=== PATIENT | male | born 1965 | race Caucasian/White ===

== ENCOUNTER 2018-10-27 10:38 | Outpatient (CLI) | payer OTHER | END 2018-10-27 10:39 | disposition home or self-care (01) | LOC: SC 10:38 | PROVIDERS: ATTEND Internal Medicine Pulmonary Disease | DX: G47.33 Obstructive sleep apnea (adult) (pediatric) (principal); E66.9 Obesity, unspecified; Z68.33 Body mass index [BMI] 33.0-33.9, adult | CPT/HCPCS: 99203; 99212 ==

== ENCOUNTER 2019-01-06 14:21 | Outpatient (CLI) | payer OTHER | END 2019-01-06 14:22 | disposition home or self-care (01) | LOC: SC 14:21 | PROVIDERS: ATTEND Nurse Practitioner Family | DX: G47.33 Obstructive sleep apnea (adult) (pediatric) (principal) | CPT/HCPCS: 99212; 99214 ==

== ENCOUNTER 2019-02-08 14:08 | Outpatient (CLI) | payer OTHER | END 2019-02-08 14:09 | disposition home or self-care (01) | LOC: SC 14:08 | PROVIDERS: ATTEND Nurse Practitioner Family | DX: G47.33 Obstructive sleep apnea (adult) (pediatric) (principal) | CPT/HCPCS: 99212; 99214 ==

== ENCOUNTER 2019-04-06 14:29 | Outpatient (CLI) | payer OTHER | END 2019-04-06 14:30 | disposition home or self-care (01) | LOC: SC 14:29 | PROVIDERS: ATTEND Nurse Practitioner Family | DX: G47.33 Obstructive sleep apnea (adult) (pediatric) (principal) | CPT/HCPCS: 99212; 99213 ==

== ENCOUNTER 2020-08-22 07:47 | Outpatient (CLI) | payer OTHER ==
--- NOTE | 2020-08-22 08:29 | SLEEP CARE CONSULTATION ---
Information from patient questionnaire entered by Amanda Marshall. I have reviewed and concur with the information entered by Amanda Marshall. This document represents the service I personally performed and the decisions made by me, Esperanza Leyva ARNP. History of Present Illness Service Date and Time: 08/22/2020 0747 Previous diagnosis: Moderate, Obstructive Sleep Apnea-Hypopnea Syndrome AHI: 25.1 (in 2011) Reason for follow up: annual (last seen 03/2019) Equipment type: CPAP Equipment obtained from: Other ( Medical out [facility], getting supplies as needed) Mask style: Nasal Backup mask available: Yes (old mask) Last cushion change: 6 weeks ago Prior sleep studies: Yes Year and Where: [facility] in [place], [place] Type of Sleep Study: Polysomnography HPI additional information: ANGELES TAFOYA JR was diagnosed to have moderate, AHI 25.1, obstructive sleep apnea-hypopnea syndrome and returned today for CPAP therapy annual follow-up with possible pressure issues. CPAP Compliance Data - Data Reviewed with Patient Average duration of nightly device use: 5 hr 41 min Compliance rate %: 61.7 (180 days) Current pressure setting (cmH2O): 12-13 Humidity settin Heated hose settin Average residual AHI: 3.8 Average large leak: 6 min 48 sec Compliance data discussion: He has been having lots of stress recently and had some chest pressure. He saw his PCM who did a full cardiac workup and it was not related. He states it seems to have reduced when he stopped using the CPAP. He no longer has chest pains but still has some chest pressure that comes and goes. He used to have a problem with chest pressure in March 2019 that resolved with increasing of CPAP pressure for air hunger. Subjective Missed days of use due to: reports: other (chest discomfort) Patient concerns: reports: dry mouth, nose, throat (occasional, adjusts humidity and heat with good results). denies: aerophagia, mask discomfort, air blowing in eyes, mask leak noise, condensation in mask/hose, nasal congestion, epistaxis, other Observed to snore while using device: No Current pressure setting perceived as: comfortable On therapy, patient: reports: sleeping better, awakening more refreshed, being more awake and alert during the day, more rested overall. denies: drowsiness while driving Initial [place] Sleepiness Scale score: 9 (in 2019) Current [place] Sleepiness Scale score: 1 Allergies and Home Medications Drug allergies reviewed: Yes (NKDA) Home medication list reviewed: Yes Allergy and home medication list: Omeprazole Cozaar Review of Systems Review of systems same as previous: No (Left Knee replacement Jun 17) Physical Exam Heart Rate: 62 O2 Saturation: 98 Height: 5 ft 11 in Weight: 244 lb Body Mass Index: 34.0 BMI Classification: Obese Impression and Plan 1. Obstructive Sleep Apnea-Hypopnea Syndrome, moderate, with fair treatment compliance and good apnea control. On CPAP therapy, the patient has better sleep quality and is more rested overall. He has not been able to use his machine in the last 2 weeks. He has been having some chest discomfort that feels like pressure. He has had a full cardiac workup without any concerning heart findings. He would like to see if changing the pressure will resolve the chest discomfort. I will reduce the CPAP pressure to 10-11 cm H2O and have him follow up in 1-2 months. He will call the office if the pressure feels like it is not enough or is too much with aerophagia to have pressure adjusted prior to appointment. Patient's apnea severity and rationale for treatment to reduce apnea, improve sleep quality and reduce cardiovascular and cerebrovascular events was reviewed. I also reviewed the benefit of consistent device use of CPAP for hypertension and gastric reflux. * Change autoCPAP pressure to 10-11 cmH2O * Notify me if snoring with mask or feeling that the pressure is too much or too little * Attempt to lose weight * Call this office if any problems using CPAP * Return for follow up in 1-2 months , or sooner if concerns arise Counseling Topics: Spare mask, Weight loss health impact Visit Type: In Office Time Spent with Patient (minutes): 25 Provider Statement: I spent 100% of the Face to Face Visit with the patient with greater than 50% spent counseling the patient and coordination of care.
== END 2020-08-22 07:48 | disposition home or self-care (01) ==
LOC: SC 07:47
PROVIDERS: ATTEND Nurse Practitioner Family
DX: G47.33 Obstructive sleep apnea (adult) (pediatric) (principal); E66.9 Obesity, unspecified; Z68.34 Body mass index [BMI] 34.0-34.9, adult
CPT/HCPCS: 99212; 99213

== ENCOUNTER 2020-10-25 15:02 | Outpatient (CLI) | payer OTHER ==
--- NOTE | 2020-10-25 15:15 | SLEEP CARE CONSULTATION ---
Information from patient questionnaire entered by Soco Amor. I have reviewed and concur with the information entered by Soco Amor. This document represents the service I personally performed and the decisions made by me, Esperanza Leyva ARNP. History of Present Illness Service Date and Time: 10/25/20201499 Previous diagnosis: Moderate, Obstructive Sleep Apnea-Hypopnea Syndrome AHI: 25.1 Reason for follow up: other (Two-month followup - pressure change) Equipment type: CPAP Equipment obtained from: Other ([employer] supplies in [place]; getting supplies as needed) Mask style: Nasal pillows Backup mask available: Yes (old mask) Last cushion change: 1 week ago Prior sleep studies: Yes Year and Where: [address] [place] [address] Sleep Lab in [place], [place] Type of Sleep Study: Polysomnography HPI additional information: ANGELES TAFOYA JR was diagnosed to have moderate, AHI 25.1, obstructive sleep apnea-hypopnea syndrome and returns via Telehealth visit today for CPAP therapy two month pressure change follow-up. CPAP Compliance Data - Data Reviewed with Patient Average duration of nightly device use: 6 h 3 min Compliance rate %: 71.7 Current pressure setting (cmH2O): 10-11 Humidity settin Heated hose settin Average residual AHI: 5.2 Average large leak: 1 sec Subjective Patient concerns: denies: aerophagia, mask discomfort, air blowing in eyes, mask leak noise, condensation in mask/hose, nasal congestion, dry mouth, nose, throat, epistaxis, other Observed to snore while using device: No Current pressure setting perceived as: comfortable On therapy, patient: reports: sleeping better, awakening more refreshed, being more awake and alert during the day, more rested overall. denies: drowsiness while driving Initial [place] Sleepiness Scale score: 9 Current [place] Sleepiness Scale score: 2 Allergies and Home Medications Drug allergies reviewed: Yes (NKDA) Home medication list reviewed: Yes (Omeprazole changed to generic) Review of Systems Review of systems same as previous: Yes (no changes) Physical Exam Vital signs obtained and entered by: Telehealth visit to limit exposure during Covid pandemic Height: 5 ft 11 in Impression and Plan 1. Obstructive Sleep Apnea-Hypopnea Syndrome, moderate, with fair treatment compliance and fair apnea control with minimal elevated residual AHI. On CPAP therapy, the patient has better sleep quality and is more rested overall. He states the chest discomfort has resolved but he does not know that he can attribute this to the CPAP pressure. His stress level has come down and the changed his medication for his acid reflux to the "generic omeprazole". Since his residual AHI is slightly elevated I will adjust his pressure back up to 11- 12 cmH2O which should adequately take care of this. He may contact the office if the pressure feels like it is too much, not enough or he develops aerophagia. Patient's apnea severity and rationale for treatment to reduce apnea, improve sleep quality and reduce cardiovascular and cerebrovascular events was reviewed. I also reviewed the benefit of consistent device use of CPAP for hypertension and gastric reflux. * Change auto CPAP pressure to 11-12 cmH2O * Notify me if snoring with mask or feeling that the pressure is too much or too little * Call this office if any problems using CPAP * Return for follow up in 1 year, or sooner if concerns arise Counseling Topics: Spare mask Visit Type: Telehealth Video Video Type: VSee Patient Location: Home Location of Provider: Office Patient agrees and consents to this telehealth visit type: Yes Time Spent with Patient (minutes): 16 Provider Statement: I spent 100% of the Telehealth Video Call with the patient with greater than 50% spent counseling the patient and coordination of care.
== END 2020-10-25 15:03 | disposition home or self-care (01) ==
LOC: SC 15:02
PROVIDERS: ATTEND Nurse Practitioner Family
DX: G47.33 Obstructive sleep apnea (adult) (pediatric) (principal)

== ENCOUNTER 2021-04-09 07:03 | Outpatient (CLI) | payer OTHER ==
--- NOTE | 2021-04-09 09:18 | MRI Report ---
PROCEDURE: Knee RT W/O INDICATIONS: RIGHT KNEE PAIN TECHNIQUE: Noncontrast sagittal PD fast spin echo and T2 fast spin echo with fat saturation, sagittal 3-D gradie nt sequence with fat saturation; coronal T1 spin echo and PD fast spin echo with fat saturation, and axial PD fast spin echo with fat saturation through the knee. COMPARISON: None. FINDINGS: Image quality: Excellent. Menisci: Complex tear involving body and posterior horn of medial meniscus is seen extending to both superior and inferior articulating surfaces. Peripheral displacement of medial meniscus is noted bowi ng medial collateral ligament. There is no evidence of focal lateral meniscal tear. The meniscal root ligaments appear intact. Cruciate ligaments: The anterior and posterior cruciate ligaments appear intact. Medial structures: Low-grade proximal MCL sprain is seen near its femoral insertion with thickened li gament and surrounding soft tissue edema. The posterior oblique ligament, semimembranosus tendon inse rtions, and oblique popliteal ligament, and meniscocapsular junction appear intact. Visualized porti ons of the pes anserinus tendons appear normal. No abnormal bursal fluid. Lateral structures: The lateral collateral ligament, long and short heads of the biceps femoris tend on appear intact. The popliteus tendon appears normal; the popliteofibular ligament appears intact. The posterosuperior and anteroinferior popliteomeniscal fascicles appear intact. The arcuate and fa bellofibular ligaments appear intact, around the lateral inferior geniculate artery. Iliotibial band appears normal. Anterior structures: The quadriceps and patellar tendons appear intact. Patellar alignment is leslie l. No femoral trochlear dysplasia or ventral trochlear prominence. No edema in the infrapatellar fa t pad. Bones and cartilage: No bone marrow contusions or fractures. Mild to moderate tricompartmental osteo arthritis and chondromalacia is seen more prominent in medial femoral tibial compartment. Moderate gr christ chondromalacia involving lateral facet of patella cartilage is also seen with adjacent 3 mm osteo chondral lesion involving posterior lateral portion of underlying patella. Joint space: There is moderate amount of joint fluid, no gross intra-articular loose body. A small B april's cyst is seen. Normal appearing synovial plicae are incidentally noted. IMPRESSION: 1. Complex tear involving body and posterior horn of medial meniscus extending to both superior and i nferior articulating surfaces. No evidence of focal lateral meniscal tear. 2. Low-grade proximal MCL sprain near its femoral insertion. Cruciate ligaments are intact. 3. Low to moderate grade tricompartmental osteoarthritis and chondromalacia more prominent in medial femoral tibial compartment and lateral portion of patellofemoral compartment as above. Moderate amoun t of joint effusion, no gross loose body. Small popliteal cyst. Reviewed by: Andrew Sandoval MD on 04/09/2021 9:17 AM PDT Approved by: Andrew Sandoval MD on 04/09/2021 9:17 AM PDT Station ID: [id number]
== END 2021-04-09 07:04 | disposition home or self-care (01) ==
LOC: DI 07:03
PROVIDERS: ATTEND Physician Assistant
DX: S83.231A Complex tear of medial meniscus, current injury, right knee, initial encounter (principal); S83.411A Sprain of medial collateral ligament of right knee, initial encounter; M17.11 Unilateral primary osteoarthritis, right knee; M94.261 Chondromalacia, right knee; M25.461 Effusion, right knee; M71.21 Synovial cyst of popliteal space [Baker], right knee

== ENCOUNTER 2021-10-17 14:15 | Outpatient (CLI) | payer OTHER ==
[2021-10-17 15:02] VITALS: BP 124/89
--- NOTE | 2021-10-17 15:02 | SLEEP CARE CONSULTATION ---
Information from patient questionnaire entered by Haley Salinas MA. I have reviewed and concur with the information entered by Haley Salinas MA. This document represents the service I personally performed and the decisions made by , Esperanza Leyva ARNP. History of Present Illness Service Date and Time: 10/17/2021 1415 Previous diagnosis: Moderate, Obstructive Sleep Apnea-Hypopnea Syndrome AHI: 25.1 Reason for follow up: annual (LAST SEEN 09/2020) Equipment type: CPAP Equipment obtained from: Other ([employer] [facility] in [place]; getting supplies as needed) Mask style: Nasal pillows Backup mask available: No (needs supplies) Last cushion change: 5 months Prior sleep studies: Yes Year and Where: [address] [place] [address] Sleep Lab in [place], [place] Type of Sleep Study: Polysomnography HPI additional information: ANGELES TAFOYA was diagnosed to have moderate, AHI 25.1, obstructive sleep apnea-hypopnea syndrome and returned today for CPAP therapy annual follow-up. Sleep Study - Results Type of Sleep Study: Polysomnography Prior sleep studies: Yes Year and Where: [address] [place] [address] Sleep Lab in [place], [place] CPAP Compliance Data - Data Reviewed with Patient Average duration of nightly device use: 6 HOURS 33 MINUTES Compliance rate %: 61.7 Current pressure setting (cmH2O): 11-12 Humidity settin Average residual AHI: 6.9 Average large leak: 17 SECONDS Compliance data discussion: Stopped using device because he ran out of supplies. Subjective Missed days of use due to: reports: other (RECALL) Patient concerns: reports: other (RECALL). denies: aerophagia, mask discomfort, air blowing in eyes, mask leak noise, condensation in mask/hose, nasal congestion, dry mouth, nose, throat, epistaxis Observed to snore while using device: No Current pressure setting perceived as: comfortable On therapy, patient: reports: sleeping better, awakening more refreshed, being more awake and alert during the day, more rested overall. denies: drowsiness while driving Initial [place] Sleepiness Scale score: 9 Current [place] Sleepiness Scale score: 4 (2021) Allergies and Home Medications Known drug allergies: No Drug allergies reviewed: Yes Home medication list reviewed: Yes (no changes) Allergy and home medication list: Omeprazole Losartan Review of Systems Review of systems same as previous: Yes (no changes) Physical Exam Vital signs obtained and entered by: eGrald SALINAS CMA AANH Blood Pressure: 124/89 (RIGHT, PULSE 92) Heart Rate: 56 O2 Saturation: 96 (WITH PAPER MASK) Height: 5 ft 11 in Weight: 245 lb 5.992 oz (WITH CLOTHES) Body Mass Index: 34.2 BMI Classification: Obese Impression and Plan 1. Obstructive Sleep Apnea-Hypopnea Syndrome, moderate, with fair treatment compliance and fair apnea control with minimal elevation of residual AHI. On CPAP therapy, the patient has better sleep quality and is more rested overall. He is comfortable with current pressure settings and has significant improvement of his AHI. I will make no pressure changes today. He has run out of supplies and had to stop using his device. He has a 3 year old Dreamstation that he has registered for the recall. Patient denies any black particles seen in machine or hoses, any unusual odors coming from device. Patient has not experienced any physical symptoms such as upper airway irritation, headache, skin or eye irritation, asthma, nausea/vomiting, difficulty breathing or chest pain. If patient is not able to sleep due to waking up choking, gasping for air or other respiratory distress that they may decide to continue using it until it is either replaced or repaired. Patient will continue to use his device and monitor for any debris. Patient needs supplies to be able to use his CPAP. I will write an order to update his supplies. Patient voiced understanding and agreement with plan. Patient's apnea severity and rationale for treatment to reduce apnea, improve sleep quality and reduce cardiovascular and cerebrovascular events was reviewed. I also reviewed the benefit of consistent device use of CPAP for hypertension and gastric reflux. Patient's current BMI is 34.2. Obesity i ncreases the risk of apnea, CPAP pressure requirements and overall health risks especially cardiovascular and diabetes. Patient was encouraged to lose weight for their overall health and to reduce apneas. * Continue auto CPAP pressure at 11-12 cmH2O * Update supplies * Notify me if snoring with mask or feeling that the pressure is too much or too little * Attempt to lose weight * Call this office if any problems using CPAP * Return for follow up in 1 year, or sooner if concerns arise Counseling Topics: Spare mask, Weight loss health impact Visit Type: In Office Time Spent with Patient (minutes): 22 Provider Statement: I spent 100% of the Face to Face Visit with the patient with greater than 50% spent counseling the patient and coordination of care.
== END 2021-10-17 14:16 | disposition home or self-care (01) ==
LOC: SC 14:15
PROVIDERS: ATTEND Nurse Practitioner Family
DX: G47.33 Obstructive sleep apnea (adult) (pediatric) (principal); E66.9 Obesity, unspecified; Z68.34 Body mass index [BMI] 34.0-34.9, adult
CPT/HCPCS: 99212; 99213

== ENCOUNTER 2022-10-31 13:50 | Outpatient (CLI) | payer OTHER ==
[2022-10-31 14:43] VITALS: BP 120/78
--- NOTE | 2022-10-31 14:43 | SLEEP CARE CONSULTATION ---
Information from patient questionnaire entered by Judith Schmidt. I have reviewed and concur with the information entered by Judith Schmidt. This document represents the service I personally performed and the decisions made by me, Esperanza Leyva ARNP. History of Present Illness Service Date and Time: 10/31/2022 1350 Previous diagnosis: Moderate, Obstructive Sleep Apnea-Hypopnea Syndrome AHI: 25.1 Reason for follow up: annual (LAST SEEN 09/2021) Equipment type: CPAP (Dreamstation 2 (received replacement from [facility] about 4- 5 months ago)) Equipment obtained from: Other ([employer] [facility] in [place]; getting supplies as needed) Mask style: Nasal pillows Backup mask available: Yes (old mask) Last cushion change: 1 week Prior sleep studies: Yes Year and Where: [facility] in [place], [place] Type of Sleep Study: Polysomnography HPI additional information: ANGELES TAFOYA was diagnosed to have moderate, AHI 25.1, obstructive sleep apnea-hypopnea syndrome and returned today for CPAP therapy annual follow-up. Sleep Study - Results Type of Sleep Study: Polysomnography Prior sleep studies: Yes Year and Where: [address] [place] [address] Sleep Lab in [place], [place] CPAP Compliance Data - Data Reviewed with Patient Average duration of nightly device use: 6 hours 28 minutes Compliance rate %: 86.1 (159/180 days used) Current pressure setting (cmH2O): 11-12 (avg 12) Average residual AHI: 7.9 Central apnea: 2.5 Obstructive apnea: 2.5 Hypopnea: 2.9 Average large leak: 34 secs Subjective Missed days of use due to: reports: travel Patient concerns: denies: aerophagia, mask discomfort, air blowing in eyes, mask leak noise, condensation in mask/hose, nasal congestion, dry mouth, nose, throat, epistaxis Observed to snore while using device: No Current pressure setting perceived as: too low On therapy, patient: reports: other (a little more tired lately). denies: drowsiness while driving Initial [place] Sleepiness Scale score: 9 Current [place] Sleepiness Scale score: 3 (10/31/22) Allergies and Home Medications Drug allergies reviewed: Yes (NKDA) Home medication list reviewed: Yes (no changes) Review of Systems Review of systems same as previous: No (high red blood count) Physical Exam Vital signs obtained and entered by: JUDITH Reyes MA Blood Pressure: 120/78 (left arm) Cuff size: regular Heart Rate: 97 O2 Saturation: 97 Height: 5 ft 11 in Weight: 254 lb Body Mass Index: 35.4 BMI Classification: Obese Impression and Plan 1. Obstructive Sleep Apnea-Hypopnea Syndrome, moderate, with good treatment compliance and fair apnea control wtih elevated residual AHI. On CPAP therapy, the patient states lately he has not been feeling as rested overall and wanting naps in afternoon. He states he feels like he is "fighting" to breathe with machine. The pressure feels too low. His residual AHI is elevated at 7.9. The patients pressure will be changed to autoCPAP 12-14 cmH20 for elevation of residual AHI. Patient advised to contact me if pressure change is uncomfortable so that it can be adjusted. Goals for apnea control discussed. Patient's apnea severity and rationale for treatment to reduce apnea, improve sleep quality and reduce cardiovascular and cerebrovascular events was reviewed. I also reviewed the benefit of consistent device use of CPAP for hypertension and gastric reflux. 2. Obesity, unspecified. Currently patients BMI is 35.4. Obesity increases the risk of apnea, CPAP pressure requirements and overall health risks especially cardiovascular and diabetes. Thus patient is advised to lose weight. * Change auto CPAP pressure to 12-14 cmH2O * Update supplies * Notify me if snoring with mask or feeling that the pressure is too much or too little * Attempt to lose weight * Call this office if any problems using CPAP * Return for follow up in 1-2 months, or sooner if concerns arise Counseling Topics: Spare mask, Weight loss health impact Visit Type: In Office Time Spent with Patient (minutes): 22 Provider Statement: I spent 100% of the Face to Face Visit with the patient with greater than 50% spent counseling the patient and coordination of care.
== END 2022-10-31 13:51 | disposition home or self-care (01) ==
LOC: SC 13:50
PROVIDERS: ATTEND Nurse Practitioner Family
DX: G47.33 Obstructive sleep apnea (adult) (pediatric) (principal); E66.9 Obesity, unspecified; Z68.35 Body mass index [BMI] 35.0-35.9, adult
CPT/HCPCS: 99212; 99213

== ENCOUNTER 2023-01-01 14:04 | Outpatient (CLI) | payer OTHER ==
[2023-01-01 14:44] VITALS: BP 118/70
--- NOTE | 2023-01-01 14:44 | SLEEP CARE CONSULTATION ---
Information from patient questionnaire entered by Al Schmidt. I have reviewed and concur with the information entered by Al Schmidt. This document represents the service I personally performed and the decisions made by me, Esperanza Leyva ARNP. History of Present Illness Service Date and Time: 01/01/2023 1404 Previous diagnosis: Moderate, Obstructive Sleep Apnea-Hypopnea Syndrome AHI: 25.1 Reason for follow up: other (2 MONTH) Equipment type: CPAP (Dreamstation 2) Equipment obtained from: Other ([employer] in [place]; getting supplies as needed) Mask style: Nasal pillows Backup mask available: Yes (old mask) Last cushion change: 3-4 weeks Prior sleep studies: Yes Year and Where: [address] [place] [address] Sleep Lab in [place], [place] Type of Sleep Study: Polysomnography HPI additional information: ANGELES TAFOYA was diagnosed to have moderate, AHI 25.1, obstructive sleep apnea-hypopnea syndrome and returned today for CPAP therapy two month pressure change follow-up. Sleep Study - Results Type of Sleep Study: Polysomnography Prior sleep studies: Yes Year and Where: [address] [place] [address] Sleep Lab in [place], [place] CPAP Compliance Data - Data Reviewed with Patient Average duration of nightly device use: 6 hours 46 minutes Compliance rate %: 86.7 (57/60 days used) Current pressure setting (cmH2O): 12-14 (avg 13.3) Average residual AHI: 5.1 Central apnea: 1.4 Obstructive apnea: 1.4 Average large leak: 0 Subjective Patient concerns: reports: aerophagia (very slight and not every morning). denies: mask discomfort, air blowing in eyes, mask leak noise, condensation in mask/hose, nasal congestion, dry mouth, nose, throat, epistaxis Observed to snore while using device: No Current pressure setting perceived as: comfortable On therapy, patient: reports: sleeping better, awakening more refreshed, being more awake and alert during the day, more rested overall. denies: drowsiness while driving Initial [place] Sleepiness Scale score: 9 Current [place] Sleepiness Scale score: 2 (01/01/23) Allergies and Home Medications Known drug allergies: No Drug allergies reviewed: Yes Home medication list reviewed: Yes (no changes) Allergy and home medication list: Allergies No Known Drug Allergies Allergy Review of Systems Review of systems same as previous: Yes (no changes) Physical Exam Vital signs obtained and entered by: AL Reyes MA Blood Pressure: 118/70 (LEFT ARM) Cuff size: regular Heart Rate: 75 O2 Saturation: 97 Height: 5 ft 11 in Weight: 256 lb 6.4 oz Body Mass Index: 35.7 BMI Classification: Obese Impression and Plan 1. Obstructive Sleep Apnea-Hypopnea Syndrome, moderate, with good treatment compliance and good apnea control. On CPAP therapy, the patient has better sleep quality and is more rested overall. He has experienced a slight aerophagia with increase in pressure from last visit. He states it is not every morning and does seem to be improving overall. We will not change pressure today and he will let me know if the aerophagia gets worse of he develops any other issues. I will follow up with him next year. Patient's apnea severity and rationale for treatment to reduce apnea, improve sleep quality and reduce cardiovascular and cerebrovascular events was reviewed. I also reviewed the benefit of consistent device use of CPAP for hypertension and gastric reflux. 2. Obesity, unspecified. Currently patients BMI is 35.7. Obesity increases the risk of apnea, CPAP pressure requirements and overall health risks especially cardiovascular and diabetes. Thus patient is advised to lose weight. * Continue auto CPAP pressure at 12-14 cmH2O * Notify me if snoring with mask or feeling that the pressure is too much or too little * Attempt to lose weight * Call this office if any problems using CPAP * Return for follow up in 1 year, or sooner if concerns arise Counseling Topics: Spare mask, Weight loss health impact Visit Type: In Office Time Spent with Patient (minutes): 11 Provider Statement: I spent 100% of the Face to Face Visit with the patient with greater than 50% spent counseling the patient and coordination of care.
== END 2023-01-01 14:05 | disposition home or self-care (01) ==
LOC: SC 14:04
PROVIDERS: ATTEND Nurse Practitioner Family
DX: G47.33 Obstructive sleep apnea (adult) (pediatric) (principal); E66.9 Obesity, unspecified; Z68.35 Body mass index [BMI] 35.0-35.9, adult
CPT/HCPCS: 99212

== ENCOUNTER 2024-02-22 12:22 | Emergency (ER) | payer OTHER ==
[2024-02-22 12:53] VITALS: BP 157/95; O2SAT 98
--- NOTE | 2024-02-22 12:54 | ED Physician Documentation ---
PD HPI OPHTHO - Stated complaint Stated Complaint: RASH - Chief complaint Chief Complaint: Heent - History obtained from History obtained from: Patient (3 days of pain and 1 day of rash to the right forehead radiating back on the scalp. No effect on vision.) PD PAST MEDICAL HISTORY - Past Medical History Past Medical History: Yes Cardiovascular: Hypertension, High cholesterol Respiratory: Sleep apnea, CPAP use GI: GERD - Past Surgical History Past Surgical History: No Ortho: Knee replacement - Present Medications Home Medications: Ambulatory Orders Medication Instructions Recorded Confirmed Clindamycin [Cleocin] 300 mg PO Q6H 10 Days capsule 07/30/15 01/01/23 Esomeprazole Magnesium [Nexium] 20 mg PO DAILY 07/30/15 01/01/23 Oxycodone HCl/Acetaminophen 1 - 2 tab PO Q4H PRN #15 tablet 07/30/15 01/01/23 [Percocet 5-325 mg Tablet] Valacyclovir HCl [Valtrex] 1,000 mg PO TID #30 tablet 02/22/24 predniSONE [Deltasone] 20 mg PO [id number] #21 tab 02/22/24 - Allergies Allergies/Adverse Reactions: Allergies Allergy/AdvReac Type Severity Reaction Status Date / Time No Known Drug Allergies Allergy Verified 02/19/24 10:44 - Social History Does the pt smoke?: No Smoking Status: Never smoker Does the pt drink ETOH?: Yes Does the pt have substance abuse?: No PD ED PE NORMAL - Vitals Vital signs reviewed: Yes - General General: Alert and oriented X 3, No acute distress - HEENT HEENT: PERRL, EOMI, Other (Shingles on the right forehead. 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 Fluorescein negative but given close return precautions and started on steroids and Valtrex. Departure - Departure Disposition: 01 Home, Self Care Clinical Impression: Shingles Qualifiers: Herpes zoster complications: without complications Qualified Code(s): B02.9 - Zoster without complications Condition: Good Record reviewed to determine appropriate education?: Yes Instructions: ED Shingles Prescriptions: predniSONE [Deltasone] 20 mg PO [id number] #21 tab Valacyclovir HCl [Valtrex] 1,000 mg PO TID #30 tablet Comments: I sent your prescriptions electronically to the [facility] in [place]. As discussed, at this point there is no evidence of involvement of your eyeball, but do return if your vision were to become affected by this. Forms: PCP List Discharge Date/Time: 02/22/24 12:55
== END 2024-02-22 12:55 | disposition home or self-care (01) ==
LOC: ED 12:22
DX: B02.9 Zoster without complications (principal)
CPT/HCPCS: 99283; 99284

== ENCOUNTER 2024-03-10 12:54 | Outpatient (CLI) | payer OTHER ==
--- NOTE | 2024-03-10 13:15 | Sleep Patient Instructions ---
Sleep Center Visit Summary - Patient Visit Information Reason for Visit: Annual follow-up - Patient Instructions Additional Instructions: You will continue with CPAP therapy with pressure set at 12-14 cmH2O. A supply prescription will be updated with your DME. We encourage you to continue to try to lose weight. Please follow up with the sleep care office in 1 year. - Clinic Information Contact: [facility] [address] [place] [address] [email or web address] T: [phone]
--- NOTE | 2024-03-10 13:18 | SLEEP CARE CONSULTATION ---
Information from patient questionnaire entered by Al Schmidt. I have reviewed and concur with the information entered by Al Schmidt. This document represents the service I personally performed and the decisions made by , Esperanza Leyva ARNP. History of Present Illness Service Date and Time: 03/10/2024 1254 Previous diagnosis: Moderate, Obstructive Sleep Apnea-Hypopnea Syndrome AHI: 25.1 (in 2011) Reason for follow up: annual (LAST SEEN 12/2022) Equipment type: CPAP (Dreamstation 2) Equipment obtained from: Other ([employer] in [place]; getting supplies as needed) Mask style: Nasal pillows Backup mask available: Yes Last cushion change: 1 week Prior sleep studies: Yes Year and Where: [address] [place] [address] Sleep Lab in [place], [place] Type of Sleep Study: Polysomnography HPI additional information: ANGELES TAFOYA was diagnosed to have moderate, AHI 25.1, obstructive sleep apnea-hypopnea syndrome and returned today for CPAP therapy annual follow-up. Sleep Study - Results Type of Sleep Study: Polysomnography Prior sleep studies: Yes Year and Where: [address] [place] [address] Sleep Lab in [place], [place] CPAP Compliance Data - Data Reviewed with Patient Average duration of nightly device use: 5 HRS 44 MINS 58 SEC Compliance rate %: 90 (10/30/23-02/06/24; 82/90 days used) Current pressure setting (cmH2O): 12-14 Average residual AHI: 3.4 Central apnea: 0.8 Obstructive apnea: 0.8 Hypopnea: 1.8 Average large leak: 1 secs Subjective Patient concerns: denies: aerophagia, mask discomfort, air blowing in eyes, mask leak noise, condensation in mask/hose, nasal congestion, dry mouth, nose, throat, epistaxis Observed to snore while using device: No Current pressure setting perceived as: comfortable On therapy, patient: reports: sleeping better, awakening more refreshed, being more awake and alert during the day, more rested overall. denies: drowsiness while driving Initial [place] Sleepiness Scale score: 9 Current [place] Sleepiness Scale score: 4 (03/10/24) Allergies and Home Medications Known drug allergies: No Drug allergies reviewed: Yes Home medication list reviewed: Yes (gabapentin, Virex, Steroid eye drop, Ibuprofen) Allergy and home medication list: Allergies No Known Drug Allergies Allergy (Verified 03/08/24 10:45) Review of Systems Review of systems same as previous: No (Shingles) Physical Exam Vital signs obtained and entered by: AL Reyes MA Blood Pressure: 130/83 (LEFT ARM) Cuff size: regular Heart Rate: 82 O2 Saturation: 95 Height: 5 ft 11 in Weight: 254 lb 9.6 oz Body Mass Index: 35.5 BMI Classification: Obese Impression and Plan 1. Obstructive Sleep Apnea-Hypopnea Syndrome, moderate, with good treatment compliance and good apnea control. On CPAP therapy, the patient has better sleep quality and is more rested overall. Patient has significant improvement of their sleep apnea and is satisfied with current CPAP therapy. Patient denies problems with oral dryness, nasal congestion, epistaxis, skin irritation or aerophagia. Patient's apnea severity and rationale for treatment to reduce apnea, improve sleep quality and reduce cardiovascular and cerebrovascular events was reviewed. I also reviewed the benefit of consistent device use of CPAP for hypertension, gastric reflux. 2. Obesity, unspecified. Currently patients BMI is 35.5. Obesity increases the risk of apnea, CPAP pressure requirements and overall health risks especially cardiovascular and diabetes. Thus patient is advised to lose weight. * Continue auto CPAP pressure at 12-14 cmH2O * Update supply prescription. * Notify me if snoring with mask or feeling that the pressure is too much or too little * Attempt to lose weight * Call this office if any problems using CPAP * Return for follow up in 12 months, or sooner if concerns arise Counseling Topics: Spare mask, Weight loss health impact Prescriptions: Device supplies Follow up with Sleep Care in: 1 year Visit Type: In Office Time Spent with Patient (minutes): 20 Provider Statement: I spent 100% of the Face to Face Visit with the patient with greater than 50% spent counseling the patient and coordination of care.
[2024-03-10 13:23] VITALS: BP 130/83; O2SAT 95
== END 2024-03-10 12:55 | disposition home or self-care (01) ==
LOC: SC 12:54
PROVIDERS: ATTEND Nurse Practitioner Family
DX: G47.33 Obstructive sleep apnea (adult) (pediatric) (principal); E66.9 Obesity, unspecified; Z68.35 Body mass index [BMI] 35.0-35.9, adult
CPT/HCPCS: 99212; 99213